=== PATIENT | female | born 1945 | race Caucasian/White ===

== ENCOUNTER 2023-08-21 16:09 | Emergency (ER) | payer OTHER, SELFPAY ==
[2023-08-21 16:29] VITALS: BP 240/105
--- NOTE | 2023-08-21 17:52 | ED.MUSCINJ ---
HPI-Injury
General
Chief Complaint: Musculo-Skeletal Complaint
Source: patient
Exam Limitations: none
Time Seen by Provider: 08/21/23 17:38
Travel History
Have you had any contact with someone who has COVID-19?: No
Do you have any symptoms of coronavirus? Fever > 100 degrees, chills, cough, shortness of breath, sore throat, loss of taste or smell, muscle aches, or headache?: No
History of Present Illness-Injury
Initial Injury comments:
78-year-old female presents complaining of left foot pain. The pain has been persistent for several weeks initially only made worse with the first couple steps in the morning however after a long day work 2 days ago she notes persistent pain to the
medial and plantar surface of the foot. Pain is made worse with bearing weight. No known injury. She has a history of hypertension. She has a history of gij-tfabepg-zqzrwjvey diabetes. No history of gout.
Past History
Past History
ED Past Medical History: GERD, HTN, Hypercholesterolemia and NIDDM
ED Past Surgical History: Appendectomy, Cholecystectomy and
Social History
Tobacco: Non-smoker
Personal:
Living: with family
Employment: Not employed
Phy Exam
Physical Exam
Physical Exam:
General: Well-appearing female no acute respiratory distress
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 She is also tender over the plantar surface of the foot with increased pain with forced dorsiflexion and resisted eversion.
Vascular: 2+ dorsalis pedis pulse left foot
Injury Course
Orders/Labs/Results
Orders:
Orders
08/21/23 16:28
Foot, Left 3 View [CR Foot - Left Min 3 Views] Urgent
Comment:
Reason For Exam: pain without injury
MDM/Problems Addressed
Differential Diagnosis Includes:
Left foot pain. Question tendinitis versus plantar fasciitis versus fracture. I have personally visualized x-rays of left foot which were taken through triage which are negative for fracture or dislocation. I recommended ice and rest.
Recommended Voltaren gel. Suspect planta fasciitis that may have been exacerbated by longer day at work several days ago. Her blood pressure was elevated at triage. She did not take her blood pressure medicine today or yesterday. She took it
while here in the emergency room
*Critical Care Note
Total Time (30-74mins, 75-104mins- exclusive of procedures): Not Applicable
Update Note
Update Note:
Repeat blood pressure checked improved. Discussion was had with daughter and patient regarding treatment. She is having no chest pain or headache. She admits to not taking her blood pressure medicine in several days. Patient wishes to go home.
She has an appointment with her family doctor coming up in several days. Stable for discharge on our behalf. Recommended topical Voltaren for her foot and rest.
ED Attending Note
-
Portions of this chart may have been created with voice recognition software.� Occasional wrong word or��sound alike� substitutions may have occurred due to the inherent limitations of voice recognition software.
Discharge Plan
Departure
Patient Disposition: Home (Routine Discharge)
Date of Disposition: 08/21/23
Time of Disposition: 19:17
Patient with high blood pressure during this ER visit?: Yes
Discharge Problem:
Acute foot pain
Instructions: Muscle and Bone Pain (DC), BLOOD PRESSURE
Prescriptions:
No Action
losartan 50 MG tablet
100 mg PO DAILY
glimepiride 4 MG tablet
4 mg PO BID
omeprazole 20 MG capsule,delayed release(DR/EC)
20 mg PO DAILY
pravastatin 20 MG tablet
20 mg PO QPM
metoprolol tartrate 100 MG tablet
100 mg PO DAILY
amlodipine 10 MG tablet
10 mg PO DAILY
aspirin 81 MG tablet,delayed release (DR/EC)
81 mg PO DAILY
gabapentin 100 MG capsule
100 mg PO DAILY
fish oil-dha-epa 1 EACH capsule
1 ea PO DAILY
triamterene-hydrochlorothiazid 1 CAPSULE capsule
1 cap PO DAILY Qty: 30 0RF
metronidazole 500 mg tablet
500 mg PO TID Qty: 21 0RF
levofloxacin 500 mg tablet
500 mg PO DAILY 7 Days Qty: 7 0RF
amoxicillin-pot clavulanate 875-125 mg tablet
1 tab PO BID 6 Days Qty: 12 0RF
ondansetron 4 mg tablet,disintegrating
4 mg PO TIDPRN PRN (Reason: nausea/vomiting) Qty: 10 0RF
Referrals:
Sofie Fu DO [Family Provider] -
Activity Restrictions/Additional Instructions:
Rest. Use topical Voltaren for your foot. Continue taking your blood pressure medication. Return for worsening symptoms otherwise follow-up with your family doctor and orthopedics
Discharge Date and Time
Print Language: BULGARIAN
[2023-08-21 18:01] VITALS: BP 226/97
[2023-08-21 18:38] VITALS: BP 219/104
== END 2023-08-21 19:49 | disposition home or self-care (01) ==
LOC: EMR 16:09
PROVIDERS: EMERGENCY PHYSICIAN Emergency Medicine; FAMILY PHYSICIAN Student in an Organized Health Care Education/Training Program
DX: M79.672 Pain in left foot (principal); I10 Essential (primary) hypertension; E11.9 Type 2 diabetes mellitus without complications; E78.00 Pure hypercholesterolemia, unspecified; K21.9 Gastro-esophageal reflux disease without esophagitis; Z90.49 Acquired absence of other specified parts of digestive tract
CPT/HCPCS: 99282; 73630

== ENCOUNTER → 2023-09-04 13:49 | Outpatient (REF) | payer OTHER, SELFPAY | LOC: RCS 13:49 | PROVIDERS: ATTENDING PHYSICIAN Nurse Practitioner Family | DX: R01.1 Cardiac murmur, unspecified (principal) | CPT/HCPCS: 93306 ==

== ENCOUNTER 2023-09-10 12:56 | Emergency (ER) | payer OTHER, SELFPAY ==
[2023-09-10 13:04] VITALS: BP 243/85
[2023-09-10 14:59] LABS: % Basophils 1.1 % (0-2); % Eosinophils 4.6 % (0-6); % Immature Granulocytes 0.3 % (0-0.5); % Lymphocytes 31.4 % (20.5-51.1); % Monocytes 6.2 % (1.7-9.3); % Neutrophils 56.4 % (42.2-75.2); Absolute Basophils 0.1 10^3/uL (0-0.2); Absolute Eosinophils 0.4 10^3/uL (0-0.7); Absolute Lymphocytes 2.4 10^3/uL (1.2-3.4); Absolute Monocytes 0.5 10^3/uL (0.1-0.6); Absolute Neutrophils 4.3 10^3/uL (1.4-6.5); Hematocrit 42.6 % (37.0-47.0); Hemoglobin 14.9 g/dL (12.0-16.0); Mean Corpuscular Hgb 30.7 pg (27.0-31.0); Mean Corpuscular Volume 87.7 fL (81.0-99.0); Mean Platelet Volume 11.8 fL (7.4-10.4); Nucleated Red Blood Cells % 0 %; Platelet Count 216 10^3/uL (130-400); Red Blood Cell Count 4.86 10^6/uL (4.20-5.40); Red Cell Dist. Width 12.2 % (11.5-14.5); White Blood Cell Count 7.6 10^3/uL (4.8-10.8)
[2023-09-10 15:00] VITALS: BP 231/72
[2023-09-10 15:10] LABS: ALT (SGPT) 20 U/L (0-35); AST (SGOT) 30 U/L (14-36); Albumin 4.4 g/dl (3.5-5.0); Alkaline Phosphatase 88 U/L (38-126); Blood Urea Nitrogen 18 mg/dl (7-17); Calcium 11.1 mg/dl (8.4-10.2); Carbon Dioxide 30 mmol/L (22-30); Chloride 105 mmol/L (98-107); Glucose 126 mg/dl (70-99); Potassium 4.3 mmol/L (3.5-5.1); Sodium 141 mmol/L (135-145); Total Bilirubin 0.9 mg/dl (0.2-1.3); Total Protein 7.4 g/dl (6.3-8.2); eGFR > 60.00
[2023-09-10 15:21] LABS: Troponin I < 0.012 ng/ml
--- NOTE | 2023-09-10 15:38 | ED.GENMED ---
History of Present Illness
General
Chief Complaint: Blood Pressure Problem
Source: patient and family (Daughter)
Exam Limitations: none
Time Seen by Provider: 09/10/23 15:09
Nursing documentation reviewed up to this point in time: agreed with
Travel History
Have you had any contact with someone who has COVID-19?: No
Do you have any symptoms of coronavirus? Fever > 100 degrees, chills, cough, shortness of breath, sore throat, loss of taste or smell, muscle aches, or headache?: No
History of Present Illness
History of Present Illness:
78-year-old female with a past medical history of hypertension, hyperlipidemia, diabetes who presents to the emergency room with her daughter sent in for evaluation of hypertension and bradycardia. Patient reports that she has a long history of
hypertension and has been maintained on Toprol-XL 100 mg once daily and losartan 100 mg once daily. No recent adjustments to her medications. She says she has been compliant with her medication. She was supposed to get carpal tunnel surgery today
with Dr. Harman at an outpatient surgery center. During the preoperative assessment she was found to be severely hypertensive with a systolic blood pressure greater than 200. She was told that she could not undergo the operation given her
abnormal blood pressure and was referred to her primary doctor for evaluation and discussion about blood pressure management prior to operative clearance. In the office she was seen by primary provider; her primary provider called ahead and said
that provider called ahead and said that when they evaluated her her blood pressure was essentially normal at 148/93 but her heart rate was in the low 50s and given the severe hypertension earlier they opted to send her to the emergency room for
assessment. Patient says she is completely asymptomatic she denies any headache, vision changes, chest pain, palpitations, shortness of breath, dizziness or any other complaints. She is frustrated that she was unable to get her surgery.
Past History
Past History
ED Past Medical History: GERD, HTN, Hypercholesterolemia and NIDDM
ED Past Surgical History: Appendectomy, Cholecystectomy and
Social History
Tobacco: Non-smoker
Personal:
Living: with family
Employment: Not employed
Review of Systems
Review of Systems
All Other Systems: ROS reviewed and negative except as documented in HPI and ROS
Constitutional: Denies fever or chills
EENT: Denies sore throat or runny nose
Respiratory: Denies cough or trouble breathing
Cardiac: Denies chest pain
ABD/GI: Denies abdominal pain, nausea or vomiting
: Denies flank pain
Musculoskeletal: Denies neck pain or back pain
Neurological: Denies dizzy, headache, weakness or numbness
Phy Exam
Physical Exam
Physical Exam:
General: Awake, alert, oriented x3; no acute distress
Head: Normocephalic, atraumatic
Eyes: Conjunctiva normal, EOMI, pupils equal round and reactive to light bilaterally
Throat: Airway intact, handling secretions
Neck: Trachea midline, supple without meningismus
Lungs: Clear to auscultation bilaterally, no wheezing, rales, rhonchi
Heart: Bradycardia with regular rhythm, no murmurs, gallops, or rubs
Abd: Soft, non distended, nontender
Neuro: Cranial nerves grossly intact, speech fluid
Skin: no rash
Extremities: No edema in extremities, equal pulses in all extremities
Scores
Heart Failure Risk
Heart Failure Risk Score: Not Applicable
Heart Score for Chest Pain Patients
STEMI patient?: Not applicable
Withdrawal Assessment of Alcohol
Withdrawal Assessment Completed?: Not applicable
Course
Orders/Labs/Results
Orders:
Orders
09/10/23 14:35
EKG [Electrocardiogram (*1)] Urgent
Reason for Study: Chest Pain
EKG- Treatment ONCE
09/10/23 14:39
Complete Blood Count/With Diff Urgent
Comprehensive Metabolic Panel Urgent
Troponin I Urgent
09/10/23 15:34
HydrALAZINE [Apresoline] 10 mg IV NOW STA
09/10/23 16:00
Vital Signs- Treatment ONCE
Frequency: q30m
09/10/23 17:28
Electrocardiogram (*1) Urgent
Reason for Study: Bradycardia / Tachycardia
EKG- Treatment ONCE
Abnormal Lab Results
09/10/23
14:39
MPV 11.8 H fL
(7.4-10.4)
BUN 18 H mg/dl
(7-17)
Glucose 126 H mg/dl
(70-99)
Calcium 11.1 H mg/dl
(8.4-10.2)
09/10/23 14:39
09/10/23 14:39
Vital Signs
Initial and Last Documented VS:
Initial Vital Signs
Temp Pulse Resp BP Pulse Ox
36.7 C 50 18 243/85 99
09/10/23 13:04 09/10/23 13:04 09/10/23 13:04 09/10/23 13:04 09/10/23 13:04
Last Documented Vital Signs
Temp Pulse Resp BP Pulse Ox
36.7 C 60 14 177/55 96
09/10/23 13:04 09/10/23 17:00 09/10/23 17:00 09/10/23 17:00 09/10/23 17:00
MDM/Problems Addressed
Differential Diagnosis Includes:
Asymptomatic hypertension
MDM/Problems Addressed:
78-year-old female presents for evaluation of asymptomatic hypertension be severely hypertensive prior to operation today for carpal tunnel syndrome with Dr. Harman. She was referred to her primary doctor who sent her to the emergency room. Here
she is severely hypertensive with a blood pressure of 243/85. Mildly bradycardic with a heart rate in the 50s. Rest of vitals normal. She has no symptoms. Physical exam as above. Will send basic screening labs including a CBC and a CMP. Check
an EKG. Will monitor blood pressure and if it remains severely elevated will provide antihypertensive for blood pressure control.
Initial labs reviewed: CBC unremarkable, CMP no clinically significant normalities�notably normal creatinine. She had a troponin sent in triage which was undetectable despite denying any chest pain at any point in time. Her blood pressure has
remained severely elevated greater than 200 systolic will provide a dose of IV hydralazine. Reassess after the above.
Patient's blood pressure improved with hydralazine to 177/55; heart rate is in the 60s. Rest of vitals normal. Remains asymptomatic. Hesitant to acutely lower her blood pressure much further especially in the absence of symptoms. No clear
indication for admission at this point in time I think she is stable for discharge and we will adjust her antihypertensives. Will start by adding hydrochlorothiazide. Will have her follow-up with her primary doctor within the next few days for
blood pressure recheck and further discussion of management. She is requesting cardiology referral as well as part of her preoperative clearance process. Spoke about return precautions and all questions were answered.
Chronic conditions affecting care:
Hypertension
Acute Exacerbation and/or Progression of Chronic Illness:
Acutely hypertensive managed as above
Acute Exacerbation and/or Progression of Chronic Illness: HTN
*Pulse Oximetry
Patient hypoxic: no
*EKG
Interpreted by ED Provider?: Yes
Heart Rate: 47
Rate: bradycardiac
Rhythm: sinus
[place]: normal axis
Interval: first degree heart block
QRS Pattern: normal QRS
Ischemia: other (Nonspecific T wave abnormalities)
*Critical Care Note
Total Time (30-74mins, 75-104mins- exclusive of procedures): Not Applicable
Data Reviewed
Source: patient and physician (Primary provider)
ED Attending Note
-
Portions of this chart may have been created with voice recognition software.� Occasional wrong word or��sound alike� substitutions may have occurred due to the inherent limitations of voice recognition software.
Discharge Plan
Departure
Patient Disposition: Home (Routine Discharge)
Date of Disposition: 09/10/23
Time of Disposition: 17:56
Patient with high blood pressure during this ER visit?: Yes
Discharge Problem:
Hypertension
Instructions: High Blood Pressure (DC)
Prescriptions:
New
hydrochlorothiazide 25 mg tablet
25 mg PO DAILY Qty: 30 0RF
No Action
losartan 50 MG tablet
100 mg PO DAILY
glimepiride 4 MG tablet
4 mg PO BID
omeprazole 20 MG capsule,delayed release(DR/EC)
20 mg PO DAILY
pravastatin 20 MG tablet
20 mg PO QPM
metoprolol tartrate 100 MG tablet
100 mg PO DAILY
amlodipine 10 MG tablet
10 mg PO DAILY
aspirin 81 MG tablet,delayed release (DR/EC)
81 mg PO DAILY
gabapentin 100 MG capsule
100 mg PO DAILY
fish oil-dha-epa 1 EACH capsule
1 ea PO DAILY
triamterene-hydrochlorothiazid 1 CAPSULE capsule
1 cap PO DAILY Qty: 30 0RF
metronidazole 500 mg tablet
500 mg PO TID Qty: 21 0RF
levofloxacin 500 mg tablet
500 mg PO DAILY 7 Days Qty: 7 0RF
amoxicillin-pot clavulanate 875-125 mg tablet
1 tab PO BID 6 Days Qty: 12 0RF
ondansetron 4 mg tablet,disintegrating
4 mg PO TIDPRN PRN (Reason: nausea/vomiting) Qty: 10 0RF
Referrals:
Lolis Jiménez CRNP [Family Provider] - Follow up in 5-7 days
Rosalio Tolbert DO [Active] - Call in 1-3 days for appt (Cardiology--call tomorrow for ED follow up appointment)
Activity Restrictions/Additional Instructions:
Thank you for visiting the Emergency Department at [facility].
1. Please schedule a follow up appointment as directed. Call first thing tomorrow morning to make an appointment.
2. If indicated, please take your medications as instructed and indicated on discharge paperwork.
3. If any of your symptoms do not improve, or persist, or become more severe within 6-12 hours, please return to the emergency department for further care.
4. Please return to the emergency department if you develop a headache, neck pain/stiffness, fever greater than 100.4F, chest pain, shortness of breath, persistent nausea, vomiting, slurred speech, difficulty walking, numbness/tingling, weakness,
signs of infection or any other symptoms that are worrisome to you.
Please call [phone] if you have any questions.
Interventions
Interventions:
*Risk Screen - Suicide Last Done: 09/10/23 13:04
*General Assessment Last Done: 09/10/23 13:04
*Neglect/Abuse Screening Last Done: 09/10/23 13:04
*ED COVID-19 Vaccine History Last Done: 09/10/23 13:04
Discharge Date and Time
Print Language: TAMAZIGHT
[2023-09-10] MEDS: APRESOLINE 10 MG IV (15:44)
[2023-09-10 16:10] VITALS: BP 171/59
[2023-09-10 17:00] VITALS: BP 177/55
[2023-09-10 18:04] VITALS: BP 218/64
== END 2023-09-10 18:40 | disposition home or self-care (01) ==
LOC: EMR 12:56
PROVIDERS: Emergency Medicine; EMERGENCY PHYSICIAN Emergency Medicine; FAMILY PHYSICIAN Nurse Practitioner Family
DX: I10 Essential (primary) hypertension (principal); E11.9 Type 2 diabetes mellitus without complications; E78.00 Pure hypercholesterolemia, unspecified
CPT/HCPCS: 99284; 96374; 80053; 84484; 85025; 93005

== ENCOUNTER → 2024-07-02 11:20 | Outpatient (REF) | payer OTHER, SELFPAY | LOC: HWRAD 11:20 | PROVIDERS: ATTENDING PHYSICIAN Nurse Practitioner Family | DX: Z13.29 Encounter for screening for other suspected endocrine disorder (principal); Z12.31 Encounter for screening mammogram for malignant neoplasm of breast | CPT/HCPCS: 77063; 77067 ==